=== PATIENT | male | born 1945 | race Caucasian/White ===

== ENCOUNTER 2018-02-11 17:03 | Emergency (ER) | payer MEDICARE ==
[~2018-02-11] VITALS: Ht 188 cm; Wt 93.0 kg
[2018-02-11 17:14] VITALS: BP 121/70; PULSE 82; RESP 18; TEMP 97.6; O2SAT 98
[2018-02-11 17:49] VITALS: BP 118/97; PULSE 137; RESP 16; O2SAT 98
[2018-02-11 18:00] VITALS: BP 151/88; PULSE 144; RESP 16; O2SAT 98
[2018-02-11] MEDS ORDERED: SODIUM CHLOR 0.9% 1000 ML INJ 1,000 ML IV ONE (18:00)
[2018-02-11] MEDS ORDERED: METOPROLOL TARTRATE 50 MG TAB PO ONE (18:00)
[2018-02-11] MEDS ORDERED: METOPROLOL TARTRATE 5 MG/5 ML VIAL IV PUSH ONE ×2 (18:00→18:15)
[2018-02-11] MEDS ORDERED: IBUP200C (18:04)
[2018-02-11] MEDS ORDERED: SIMV20TA PO (18:04)
[2018-02-11] MEDS ORDERED: OMEP20TA93 PO (18:04)
[2018-02-11] MEDS ORDERED: BENA20TA PO (18:04)
[2018-02-11] MEDS ORDERED: NITR1SUB3 SL (18:04)
[2018-02-11] MEDS ORDERED: ASPI-516 CHEW (18:04)
--- NOTE | 2018-02-11 18:04 | PD ---
HPI Chief Complaint: Cardiac Complaint Time Seen by Provider: 17:49 Travel History International Travel<30 days: No Contact w/Intl Traveler<30days: No Traveled to known affect area: No History of Present Illness HPI 72-year-old male with history of hypertension, hyperlipidemia presents emergency department for evaluation of chest fluttering and shortness of breath that started at 1115 this morning. Patient states that he called his manager land office, Dr. Spears, and he recommended he come to the emergency department immediately for evaluation. Patient says that the fluttering is located on the right side of his chest and states it feels "weird". He denies actual pain however. says he has never had a history of this. Says that he had a PET scan last week to evaluate for a blockage of his right artery in his heart that was found on CT and says that the PET scan was normal. Says he has a history of hypertension and hyperlipidemia. Denies tobacco or alcohol use. Denies any other chronic cardiac or pulmonary issues. Denies any other chronic medical issues or medication use. Takes BASA daily. PFSH Past Medical History Atrial Fibrillation: Yes Cardiovascular Problems: Yes (A-FIB) High Cholesterol: Yes GERD: Yes Hypertension: Yes Past Surgical History Surgical History: No Previous Surgery Social History Alcohol Use: No Tobacco Use: No (quit in college) Substance Use: No Allergies-Medications (Allergen,Severity, Reaction): Coded Allergies: No Known Allergies (Unverified , 02/11/18) Reported Meds & Prescriptions Reported Meds & Active Scripts Active Metoprolol Tartrate 25 Mg Tab 12.5 Mg PO BID 14 Days Reported Nitroglycerin SL (Nitroglycerin) 0.4 Mg Subl 0.4 Mg SL DIRECTED PRN ONE TABLET UNDER THE TONGUE NEEDED FOR CHEST PAIN, MAY REPEAT EVERY FIVE MINUTES FOR A TOTAL OF 3 DOSES OR CALL 911 IF NO RELIEF Ibuprofen 200 Mg Cap 200 Mg Q4H PRN Omeprazole 20 Mg Tab 20 Mg PO DAILY Aspirin 81 Mg Chew 81 Mg CHEW DAILY Benazepril (Benazepril HCl) 20 Mg Tab 20 Mg PO DAILY Simvastatin 20 Mg Tab 20 Mg PO DAILY Review of Systems Except as stated in HPI: all other systems reviewed are Neg Physical Exam Narrative GENERAL: Normal, well-nourished in no apparent distress SKIN: Focused skin assessment warm/dry. HEAD: Atraumatic. Normocephalic. EYES: Pupils equal and round. No scleral icterus. No injection or drainage. ENT: No nasal bleeding or discharge. Mucous membranes pink and moist. NECK: Trachea midline. No JVD. CARDIOVASCULAR: Regular rate and rhythm. No murmur appreciated. RESPIRATORY: No accessory muscle use. Clear to auscultation. Breath sounds equal bilaterally. GASTROINTESTINAL: Abdomen soft, non-tender, nondistended. MUSCULOSKELETAL: No obvious deformities. No clubbing. No cyanosis. No pedal edema. NEUROLOGICAL: Awake and alert. No obvious cranial nerve deficits. Motor grossly within normal limits. Normal speech. PSYCHIATRIC: Appropriate mood and affect; insight and judgment normal. Data Data Last Documented VS Vital Signs Date Time Temp Pulse Resp B/P (MAP) Pulse Ox O2 Delivery O2 Flow Rate FiO2 02/11/18 19:14 70 18 163/96 (118) 95 Room Air 02/11/18 17:14 97.6 Orders Orders Complete Blood Count With Diff (02/11/18 17:22) Basic Metabolic Panel (Bmp) (02/11/18 17:22) Ckmb (Isoenzyme) Profile (02/11/18 17:22) Troponin I (02/11/18 17:22) Sodium Chlor 0.9% 1000 Ml Inj (Ns 1000 M (02/11/18 18:00) Metoprolol Tartrate Inj (Lopressor Inj) (02/11/18 18:00) Metoprolol Tartrate (Lopressor) (02/11/18 18:00) Chest, Single Ap (02/11/18 ) Metoprolol Tartrate Inj (Lopressor Inj) (02/11/18 18:15) Prothrombin Time / Inr (Pt) (02/11/18 18:19) Act Partial Throm Time (Ptt) (02/11/18 18:19) Electrocardiogram (02/11/18 ) Admit Order (Ed Use Only) (02/11/18 19:41) Labs Laboratory Tests Test 02/11/18 17:33 02/11/18 19:05 White Blood Count 8.1 TH/MM3 Red Blood Count 5.59 MIL/MM3 Hemoglobin 18.1 GM/DL Hematocrit 51.7 % Mean Corpuscular Volume 92.5 FL Mean Corpuscular Hemoglobin 32.4 PG Mean Corpuscular Hemoglobin Concent 35.0 % Red Cell Distribution Width 13.0 % Platelet Count 156 TH/MM3 Mean Platelet Volume 8.0 FL Neutrophils (%) (Auto) 61.7 % Lymphocytes (%) (Auto) 21.0 % Monocytes (%) (Auto) 14.4 % Eosinophils (%) (Auto) 2.0 % Basophils (%) (Auto) 0.9 % Neutrophils # (Auto) 5.0 TH/MM3 Lymphocytes # (Auto) 1.7 TH/MM3 Monocytes # (Auto) 1.2 TH/MM3 Eosinophils # (Auto) 0.2 TH/MM3 Basophils # (Auto) 0.1 TH/MM3 CBC Comment DIFF FINAL Differential Comment Blood Urea Nitrogen 21 MG/DL Creatinine 1.20 MG/DL Random Glucose 94 MG/DL Calcium Level 8.9 MG/DL Sodium Level 144 MEQ/L Potassium Level 3.9 MEQ/L Chloride Level 107 MEQ/L Carbon Dioxide Level 29.1 MEQ/L Anion Gap 8 MEQ/L Estimat Glomerular Filtration Rate 60 ML/MIN Total Creatine Kinase 97 U/L Troponin I 0.04 NG/ML Prothrombin Time 11.3 SEC Prothromb Time International Ratio 1.1 RATIO Activated Partial Thromboplast Time 24.8 SEC MDM Medical Decision Making Medical Screen Exam Complete: Yes Emergency Medical Condition: Yes Differential Diagnosis A. fib with RVR, ACS, angina Narrative Course 72-year-old male with history of hypertension, hyperlipidemia presents emergency department for evaluation of chest fluttering and shortness of breath that started at 1115 this morning while performing yard work. Patient states that he called his manager land office, Dr. Spears, and he recommended he come to the emergency department immediately for evaluation. Patient says that the fluttering is located on the right side of his chest and states it feels "weird ". He denies actual pain however. says he has never had a history of this. Says that he had a PET scan last week to evaluate for a blockage of his right artery in his heart that was found on CT and says that the PET scan was normal. Says he has a history of hypertension and hyperlipidemia. Denies tobacco or alcohol use. Denies any other chronic cardiac or pulmonary issues. Denies any other chronic medical issues or medication use. Takes BASA daily. Patient says that he made an appointment with Dr. Spears Wednesday. he says that his symptoms started at 11 this morning but decided to come in this afternoon because he thought the symptoms would resolve on its own. Vital signs stable- HR 90-170 BPM, irregularly irregular. EKG shows atrial fibrillation with RVR at rate 166. Labs and imaging studies ordered. Metoprolol 2.5 mg administered IV without improvement. A repeat dose of 2.5 mg demonstrated a heart rate of 60-70, irregularly irregular. Metoprolol 50 mg p.o. administered. @1900 I spoke with patient and he says he feels much better. He would like to go home. Says that he would like to go home if he is unable to obtain the heart catheter while he is here in the ER. After further discussion, pt agrees to stay but is insistent on not being in an observation period because of insurance issues. I advised that this was at the recommendation of the hospitalist and manager land. I explained the importance of monitoring in the hospital and the risks of leaving. @191 repeat EKG shows sinus rhythm with PACs, rate 78. No STEMI changes. After speaking with Dr. Sousa, pt refused to stay because of the observation status, because of insurance issues. I spoke with my attending as well he states that because patient does have a follow-up, it is reasonable to discharge patient with metoprolol and continue his daily aspirin. However, I believe he would benefit from admission. He has a followup with Dr. Pierson Wednesday at 1030a. Says he will follow up as discussed. Pt will have metoprolol 12.5mg BID, continue BASA QD. He should return to the ED for worsening or persistent symptoms. Diagnosis Primary Impression: Atrial fibrillation with RVR Admitting Information Admitting Physician Requests: Admit Referrals: Recreation Therapy Teacher Additional Instructions: Follow-up with manager land as discussed. Start metoprolol 12.5 mg twice a day. Hold for heart rate 50 or less. Start this medication tomorrow morning. Continue aspirin daily. If your symptoms persist or worsen, return to the ED. Scripts Metoprolol Tartrate (Metoprolol Tartrate) 25 Mg Tab 12.5 MG PO BID for 14 Days, #14 TAB 0 Refills Prov: Erica Montoya 02/11/18 Disposition: 01 DISCHARGE HOME Condition: Stable Erica Montoya Feb 11, 2018 18:04
[2018-02-11 18:15] LABS: BASOPHIL # 0.1 TH/MM3 (0-0.2); BASOPHIL % 0.9 % (0.0-2.0); EOSINOPHIL # 0.2 TH/MM3 (0-0.4); HEMATOCRIT 51.7 % (39.0-51.0); HEMOGLOBIN 18.1 GM/DL (13.0-17.0); LYMPHOCYTE # 1.7 TH/MM3 (1.0-4.8); MEAN CELL VOLUME 92.5 FL (80.0-100.0); MEAN CORPUSCULAR HEMOGLOBIN 32.4 PG (27.0-34.0); MONO % 14.4 % (0.0-8.0); MONOCYTE # 1.2 TH/MM3 (0-0.9); NEUT % 61.7 % (16.0-70.0); PLATELET COUNT 156 TH/MM3 (150-450); RED BLOOD COUNT 5.59 MIL/MM3 (4.50-5.90); WHITE BLOOD COUNT 8.1 TH/MM3 (4.0-11.0)
[2018-02-11 18:26] LABS: BICARBONATE 29.1 MEQ/L (21.0-32.0); CALCIUM 8.9 MG/DL (8.5-10.1); CREATININE 1.2 MG/DL (0.60-1.30); TROPONIN I 0.04 NG/ML (0.02-0.05)
--- NOTE | 2018-02-11 18:33 | RADRPT ---
EXAM DATE/TIME: 02/11/2018 18:15 [facility] COMPARISON: No previous studies available for comparison. INDICATIONS : Shortness of breath MEDICAL HISTORY : Hypertension. SURGICAL HISTORY : None. ENCOUNTER: Initial ACUITY: 1 day PAIN SCORE: 10 LOCATION: Bilateral chest FINDINGS: A single view of the chest demonstrates the lungs to be symmetrically aerated without evidence of mas s, infiltrate or effusion. The cardiomediastinal contours are unremarkable. Osseous structures are intact. CONCLUSION: No evidence of acute cardiopulmonary disease. Caio James MD on February 11, 2018 at 18:30 Board Certified Radiologist. This report was verified electronically.
--- NOTE | 2018-02-11 18:57 | PD ---
Data Data Last Documented VS Vital Signs Date Time Temp Pulse Resp B/P (MAP) Pulse Ox O2 Delivery O2 Flow Rate FiO2 02/11/18 18:00 144 16 151/88 (109) 98 Room Air 02/11/18 17:14 97.6 Orders Orders Complete Blood Count With Diff (02/11/18 17:22) Basic Metabolic Panel (Bmp) (02/11/18 17:22) Ckmb (Isoenzyme) Profile (02/11/18 17:22) Troponin I (02/11/18 17:22) Sodium Chlor 0.9% 1000 Ml Inj (Ns 1000 M (02/11/18 18:00) Metoprolol Tartrate Inj (Lopressor Inj) (02/11/18 18:00) Metoprolol Tartrate (Lopressor) (02/11/18 18:00) Chest, Single Ap (02/11/18 ) Metoprolol Tartrate Inj (Lopressor Inj) (02/11/18 18:15) Prothrombin Time / Inr (Pt) (02/11/18 18:19) Act Partial Throm Time (Ptt) (02/11/18 18:19) Labs Laboratory Tests Test 02/11/18 17:33 White Blood Count 8.1 TH/MM3 Red Blood Count 5.59 MIL/MM3 Hemoglobin 18.1 GM/DL Hematocrit 51.7 % Mean Corpuscular Volume 92.5 FL Mean Corpuscular Hemoglobin 32.4 PG Mean Corpuscular Hemoglobin Concent 35.0 % Red Cell Distribution Width 13.0 % Platelet Count 156 TH/MM3 Mean Platelet Volume 8.0 FL Neutrophils (%) (Auto) 61.7 % Lymphocytes (%) (Auto) 21.0 % Monocytes (%) (Auto) 14.4 % Eosinophils (%) (Auto) 2.0 % Basophils (%) (Auto) 0.9 % Neutrophils # (Auto) 5.0 TH/MM3 Lymphocytes # (Auto) 1.7 TH/MM3 Monocytes # (Auto) 1.2 TH/MM3 Eosinophils # (Auto) 0.2 TH/MM3 Basophils # (Auto) 0.1 TH/MM3 CBC Comment DIFF FINAL Differential Comment Blood Urea Nitrogen 21 MG/DL Creatinine 1.20 MG/DL Random Glucose 94 MG/DL Calcium Level 8.9 MG/DL Sodium Level 144 MEQ/L Potassium Level 3.9 MEQ/L Chloride Level 107 MEQ/L Carbon Dioxide Level 29.1 MEQ/L Anion Gap 8 MEQ/L Estimat Glomerular Filtration Rate 60 ML/MIN Total Creatine Kinase 97 U/L Troponin I 0.04 NG/ML MDM Supervised Visit with MINDY: Yes Narrative Course I, Dr. Stovall, have reviewed the advance practice practitioner's documentation and am in agreement, met with the patient face to face, made the diagnosis, and the medical decision making was done by me. *My assessment and Findings: Patient presents with a new onset of A. fib with RVR. Pressure is decent at this point. Heart rate improved with IV Lopressor. Labs pending. Plan is for telemetry admission for new onset A. fib with RVR Diagnosis Primary Impression: Atrial fibrillation with RVR Admitting Information Admitting Physician Requests: Admit Condition: Stable Doug Stovall MD Feb 11, 2018 18:57
[2018-02-11 19:14] VITALS: BP 163/96; PULSE 70; RESP 18; O2SAT 95
[2018-02-11] MEDS ORDERED: SODIUM CHLOR 0.9% 1000 ML INJ 1,000 ML IV SCH (19:40)
[2018-02-11] MEDS ORDERED: MORPHINE SULFATE 2 MG/ML SYRINGE IV PUSH PRN (19:45)
[2018-02-11] MEDS ORDERED: ONDANSETRON HCL 4 MG/2 ML VIAL IVP PRN (19:45)
[2018-02-11] MEDS ORDERED: ACETAMINOPHEN 325 MG TAB PO PRN (19:45)
[2018-02-11] MEDS ORDERED: ACETAMINOPHEN/HYDROcodone 325 MG/5 MG TAB PO PRN (19:45)
[2018-02-11] MEDS ORDERED: MAGNESIUM HYDROXIDE SUSP 30 ML CUP PO PRN (19:45)
[2018-02-11] MEDS ORDERED: LACTULOSE SYRUP 20 GM/30 ML CUP PO PRN (19:45)
[2018-02-11] MEDS ORDERED: BISACODYL 10 MG SUPP RECTAL PRN (19:45)
[2018-02-11] MEDS ORDERED: SENNOSIDES 8.6 MG TAB PO PRN (19:45)
[2018-02-11] MEDS ORDERED: SODIUM CHLORIDE 0.9% FLUSH 10 ML FLUSH IV FLUSH PRN (19:45)
--- NOTE | 2018-02-11 19:45 | HHI.HP ---
[facility] Primary Care Physician Yadiel Allen MD Admission Diagnosis new onset AFib Diagnoses: Travel History International Travel<30 Days: No Contact w/Intl Traveler <30 Da: No Traveled to Known Affected Are: No Past Family Social History Allergies: Coded Allergies: No Known Allergies (Unverified , 02/11/18) Physical Exam Vital Signs Vital Signs Date Time Temp Pulse Resp B/P (MAP) Pulse Ox O2 Delivery O2 Flow Rate FiO2 02/11/18 19:14 70 18 163/96 (118) 95 Room Air 02/11/18 18:00 144 16 151/88 (109) 98 Room Air 02/11/18 17:49 137 16 118/97 (104) 98 Room Air 02/11/18 17:46 153 16 98 Room Air 02/11/18 17:14 97.6 82 18 121/70 (87) 98 Physical Exam GENERAL: This is a well-nourished, well-developed patient, in no apparent distress. SKIN: No rashes, ecchymoses or lesions. Cool and dry. HEAD: Atraumatic. Normocephalic. No temporal or scalp tenderness. EYES: Pupils equal round and reactive. Extraocular motions intact. No scleral icterus. No injection or drainage. ENT: Nose without bleeding, purulent drainage or septal hematoma. Throat without erythema, tonsillar hypertrophy or exudate. Uvula midline. Airway patent. NECK: Trachea midline. No JVD or lymphadenopathy. Supple, nontender, no meningeal signs. CARDIOVASCULAR: Regular rate and rhythm without murmurs, gallops, or rubs. RESPIRATORY: Clear to auscultation. Breath sounds equal bilaterally. No wheezes , rales, or rhonchi. GASTROINTESTINAL: Abdomen soft, non-tender, nondistended. No hepato-splenomegaly , or palpable masses. No guarding. MUSCULOSKELETAL: Extremities without clubbing, cyanosis, or edema. No joint tenderness, effusion, or edema noted. No calf tenderness. Negative Homans sign bilaterally. NEUROLOGICAL: Awake and alert. Cranial nerves II through XII intact. Motor and sensory grossly within normal limits. Five out of 5 muscle strength in all muscle groups. Normal speech. Laboratory Laboratory Tests Test 02/11/18 17:33 02/11/18 19:05 White Blood Count 8.1 Red Blood Count 5.59 Hemoglobin 18.1 Hematocrit 51.7 Mean Corpuscular Volume 92.5 Mean Corpuscular Hemoglobin 32.4 Mean Corpuscular Hemoglobin Concent 35.0 Red Cell Distribution Width 13.0 Platelet Count 156 Mean Platelet Volume 8.0 Neutrophils (%) (Auto) 61.7 Lymphocytes (%) (Auto) 21.0 Monocytes (%) (Auto) 14.4 Eosinophils (%) (Auto) 2.0 Basophils (%) (Auto) 0.9 Neutrophils # (Auto) 5.0 Lymphocytes # (Auto) 1.7 Monocytes # (Auto) 1.2 Eosinophils # (Auto) 0.2 Basophils # (Auto) 0.1 CBC Comment DIFF FINAL Differential Comment Blood Urea Nitrogen 21 Creatinine 1.20 Random Glucose 94 Calcium Level 8.9 Sodium Level 144 Potassium Level 3.9 Chloride Level 107 Carbon Dioxide Level 29.1 Anion Gap 8 Estimat Glomerular Filtration Rate 60 Total Creatine Kinase 97 Troponin I 0.04 Result Diagram: 02/11/18 1733 02/11/18 1733 Caprini VTE Risk Assessment Caprini Risk Assessment Model Point Value = 1 Point Value = 2 Point Value = 3 Point Value = 5 Age 41-60 Minor surgery BMI > 25 kg/m2 Swollen legs Varicose veins or History of unexplained or recurrent spontaneous Oral contraceptives or hormone replacement Sepsis (< 1 month) Serious lung disease, including pneumonia (< 1 month) Abnormal pulmonary function Acute myocardial infarction Congestive heart failure (< 1 month) History of inflammatory bowel disease Medical patient at bed rest Age 61-74 Arthroscopic surgery Major open surgery (> 45 min) Laparoscopic surgery (> 45 min) Malignancy Confined to bed (> 72 hours) Immobilizing plaster cast Central venous access Age >= 75 History of VTE Family history of VTE Factor V Leiden Prothrombin [id number] Lupus anticoagulant Anticardiolipin antibodies Elevated serum homocysteine Heparin-induced thrombocytopenia Other congenital or acquired thrombophilia Stroke (< 1 month) Elective arthroplasty Hip, pelvis, or leg fracture Acute spinal cord injury (< 1 month) Prophylaxis Regimen Total Risk Factor Score Risk Level Prophylaxis Regimen 0-1 Low Early ambulation 2 Moderate Order ONE of the following: *Sequential Compression Device (SCD) *Heparin 5000 units SQ BID 3-4 Higher Order ONE of the following medications: *Heparin 5000 units SQ TID *Enoxaparin/Lovenox 40 mg SQ daily (WT < 150 kg, CrCl > 30 mL/min) *Enoxaparin/Lovenox 30 mg SQ daily (WT < 150 kg, CrCl > 10-29 mL/min) *Enoxaparin/Lovenox 30 mg SQ BID (WT < 150 kg, CrCl > 30 mL/min) AND/OR *Sequential Compression Device (SCD) 5 or more Highest Order ONE of the following medications: *Heparin 5000 units SQ TID (Preferred with Epidurals) *Enoxaparin/Lovenox 40 mg SQ daily (WT < 150 kg, CrCl > 30 mL/min) *Enoxaparin/Lovenox 30 mg SQ daily (WT < 150 kg, CrCl > 10-29 mL/min) *Enoxaparin/Lovenox 30 mg SQ BID (WT < 150 kg, CrCl > 30 mL/min) AND *Sequential Compression Device (SCD) Nani Sousa MD Feb 11, 2018 19:45
[2018-02-11] MEDS ORDERED: METO25TA3 PO (19:59)
[2018-02-11 20:01] LABS: INTERNATIONAL NORMALIZED RATIO 1.1 RATIO; PROTHROMBIN TIME - PATIENT 11.3 SEC (9.8-11.6)
[2018-02-11] MEDS ORDERED: DOCUSATE SODIUM 50 MG/SENNA 8.6 MG TAB PO SCH (21:00)
[2018-02-11] MEDS ORDERED: SODIUM CHLORIDE 0.9% FLUSH 10 ML FLUSH IV FLUSH SCH (21:00)
--- NOTE | 2018-02-11 23:27 | EKG ---
Date Performed: 02/11/2018 Time Performed: 19:13:24 PTAGE: 72 years EKG: Sinus rhythm WITH OCCASIONAL SUPRAVENTRICULAR PREMATURE COMPLEXES INCOMPLETE RIGHT BUNDLE BRANCH BLOCK BORDERLINE ECG PREVIOUS TRACING : 02/11/2018 17.27 Compared to previous tracing, now in sinus rhythm, ST/T wa ve changes no longer noted DOCTOR: Alo Hansen Interpretating Date/Time 02/11/2018 23:25:41
--- NOTE | 2018-02-11 23:28 | EKG ---
Date Performed: 02/11/2018 Time Performed: 17:27:37 PTAGE: 72 years EKG: ATRIAL FLUTTER/TACHYCARDIA WITH RAPID VENTRICULAR RESPONSE INCOMPLETE RIGHT BUNDLE BRANCH B LOCK ST DEVIATION AND MODERATE T-WAVE ABNORMALITY, CONSIDER INFERIOR ISCHEMIA ABNORMAL ECG NO PREVIOUS TRACING DOCTOR: Alo Hansen Interpretating Date/Time 02/11/2018 23:27:01
[2018-02-12] MEDS ORDERED: METOPROLOL TARTRATE 25 MG TAB PO SCH (09:00)
[2018-02-12] MEDS ORDERED: NON-FORMULARY DRUG (Omeprazole 20 MG) PO SCH (09:00)
[2018-02-12] MEDS ORDERED: NON-FORMULARY DRUG (Simvastatin 20 MG) PO SCH (09:00)
[2018-02-12] MEDS ORDERED: ASPIRIN 81 MG CHEW TAB CHEW SCH (09:00)
== END 2018-02-11 20:13 | disposition home or self-care (01) ==
LOC: NEPC 17:03 → NEDA 19:43 → UNDOADMOB 19:43 → NEPC 20:13
DX: I48.91 Unspecified atrial fibrillation (principal); E78.5 Hyperlipidemia, unspecified; I10 Essential (primary) hypertension; Z87.891 Personal history of nicotine dependence
CPT/HCPCS: 71045; 80048; 82550; 84484; 85025; 85610; 85730; 93005; 96361; 96374; 99285; J7030

== ENCOUNTER 2018-02-15 10:27 | Day surgery (SDC) | payer MEDICARE ==
[~2018-02-15] VITALS: Ht 188 cm; Wt 93.4 kg
[~2018-02-15 10:27] MED LIST: ASPI-516 CHEW; BENA20TA PO; IBUP200C; METO25TA3 PO; NITR1SUB3 SL; OMEP20TA93 PO; SIMV20TA PO
[2018-02-15] MEDS ORDERED: IOHEXOL 350 MG/ML 100 ML BTL (for Cath Lab) OTHER ONE (10:28)
[2018-02-15 10:57] VITALS: BP 192/112; PULSE 53; RESP 18; TEMP 97.7; O2SAT 98
[2018-02-15] MEDS ORDERED: NS 1000P @30 MLS/HR (KVO) IV SCH (11:00)
[2018-02-15] MEDS ORDERED: ASPI-183 PO (11:03)
[2018-02-15] MEDS ORDERED: METO50TA PO (11:03)
[2018-02-15 11:16] LABS: AUTOMATED NEUTROPHIL # 4.3 TH/MM3 (1.8-7.7); BASOPHIL # 0.1 TH/MM3 (0-0.2); BASOPHIL % 1.1 % (0.0-2.0); EOSINOPHIL # 0.3 TH/MM3 (0-0.4); EOSINOPHIL % 4.4 % (0.0-4.0); HEMATOCRIT 53.2 % (39.0-51.0); HEMOGLOBIN 18.3 GM/DL (13.0-17.0); LYMPH % 19.5 % (9.0-44.0); LYMPHOCYTE # 1.3 TH/MM3 (1.0-4.8); MEAN CELL VOLUME 92.8 FL (80.0-100.0); MEAN CORPUSCULAR HEMOGLOBIN 31.9 PG (27.0-34.0); MEAN CORPUSCULAR HGB CONC 34.4 % (32.0-36.0); MEAN PLATELET VOLUME 8.1 FL (7.0-11.0); MONOCYTE # 0.8 TH/MM3 (0-0.9); PLATELET COUNT 169 TH/MM3 (150-450); RED BLOOD COUNT 5.73 MIL/MM3 (4.50-5.90); RED CELL DISTRIBUTION WIDTH 13.1 % (11.6-17.2); WHITE BLOOD COUNT 6.8 TH/MM3 (4.0-11.0)
[2018-02-15 11:23] LABS: INTERNATIONAL NORMALIZED RATIO 1.1 RATIO
[2018-02-15 11:24] LABS: PROTHROMBIN TIME - PATIENT 10.7 SEC (9.8-11.6)
[2018-02-15 11:33] LABS: CALCIUM 8.7 MG/DL (8.5-10.1); CREATININE 1.05 MG/DL (0.60-1.30)
[2018-02-15] MEDS ORDERED: MIDAZOLAM HCL 2 MG/2 ML VIAL ONE (13:06)
[2018-02-15] MEDS ORDERED: HEPARIN SODIUM - IV 10,000 UNITS/10 ML VIAL ONE (13:06)
[2018-02-15] MEDS ORDERED: ENALAPRILAT 1.25 MG/ML VIAL ONE ×2 (13:53→14:08)
[2018-02-15] MEDS ORDERED: METOPROLOL TARTRATE 5 MG/5 ML VIAL ONE (14:20)
--- NOTE | 2018-02-15 14:38 | CATHPROC ---
[facility] HIS Report Study Information Study Number Admission Scheduled Start Study Start [id number] Feb 15 2018 10:27AM 02/15/2018 Feb 15 2018 1:07PM [facility] Cardiac Catheterization Admit Source Facility Department Other [facility] Physician and Clinical Staff Initial Naty Gomez Money Room Supervisor Ethel Camacho,GABE Money Room Supervisor Ty Faith RN Other cathlab, cathlab Recorder Иван Escamilla RCIS(BS) Scrub Kiki Gonzalez RT(R) Procedures Performed Procedure Location (Site) Vessel Name Angiogram LV LV Ventricle Coronary Angiograms LCA Left Coronary Coronary Angiograms RCA Right Coronary L Heart Cath Wire insertion Fem Art (right) Femoral Art Equipment Time Comic Artist Description Size Mfg Part Number Used/Scraped TRANSDUCER, SHELBY [id number] 13:19 Fredio * Used W/STOCKCOCK *[id number] INTRODUCER SET, 13:19 [employer] FR 5 [id number] *[id number] Used MICROPUNCTURE STIFF [phone] *[id number] 538-420 *[id number] 538-422 *[id number] 538-453S *[id number] WIRE, HYDROSTEER 150CM [id number] 13:38 DAIG/ST. ANH MEDICAL 150CM Used ANGLED GLIDE *[id number] 13:19 MEDLINE IND[employer]ES PACK, CCL CUSTOM * Used *[id number] 13:19 [employer] PACER PEN, SKIN DUAL W/ RULER * Used *[id number] 13:19 [employer]2One MEDICAL WIRE, 3MMJ .035 180CM 180CM Used *[id number] PROBE COVER, STERILE [id number] 13:19 [employer] * Used ULTRASOUND W/ GEL *[id number] 13:19 NAMIC MANIFOLD, 4 PORT * Used *[id number] 13:19 NYCOMED OMNIPAQUE, 350 MG, 150ML 150ML [id number] Used 14:01 NYCOMED OMNIPAQUE, 350 MG, 50ML 50ML [id number] Used [id number] 13:19 EARLY MEDICAL BLANKET,WARM AIR CCL * Used *[id number] 13:19 TERUMO MEDICAL SHEATH, FR4 TERUMO (10CM) FR 4 Used *[id number] History: Current Medications Medication Dosage/Unit Route Frequency Last Date/Time Taken Beta Haim Statins (any) ASA History: Allergies Allergy Reaction No Known Allergies History: Risk Factors Family History of Hypertension Dyslipidemia Previous [place] Previous Heart Failure Premature CAD Yes No No No No Prior Valve Prior PCI Prior CABG Surgery No No No Cerebrovascular Peripheral Artery Chronic Lung On Dialysis Diabetes Disease Disease Disease No No No No No History: Symptoms/Diagnosis Selection Items Chest pain History: Stress Tests Stress or Imaging Studies Performed Yes Standard Exercise Stress Test No Stress Echo No Stress Test SPECT Stress Test SPECT Result Stress Test SPECT Ischemia Risk/Extent Yes Positive Unavailable Stress Test CMR No Cardiac CTA Coronary Calcium Score No No History: Other Disease Selection Items HTN History: Other Current Smoker No Labs Hgb (g/dl) Hct (%) WBC (l/cumm) Platelets (thousands) 11.60-17.00 35.00-51.00 4.00-11.00 150.00-450.00 18.3 53.2 6.8 169 Glucose (mg/dl) BUN (mg/dl) Creatinine (mg/dl) BUN:Creatinine (1:x) 74.00-106.00 7.00-18.00 0.50-1.30 10.00-20.00 91 14 1.0 14 Na (meq/l) K (meq/l) 136.00-145.00 3.50-5.10 141 4.5 INR (PTT:PT) 0.90-1.10 1.1 CPK-MB (ng/ML) 0.50-3.60 Not Drawn Medication Medication Total Dose (Bolus/Oral) Medication Total Dosage/Unit 1% XYLOCAINE 20 mL FENTANYL 50 mcg METOPROLOL 5 mg VASOTEC 2.5 mg VERSED 2 mg Medications (Bolus/Oral) Medication Time Given Dosage/Unit Administered By Reason VERSED 02/15/2018 1:31:20 PM 2 mg Ty Faith 2 mg VERSED given in lab by Ty Faith RN in Left Antecubital via Peripheral IV. Ordered by Naty Wu. FENTANYL 02/15/2018 1:31:37 PM 50 mcg Ty Faith 50 mcg FENTANYL given in lab by Ty Faith RN in Left Antecubital via Peripheral IV. Ordered by Naty Almeida. 1% XYLOCAINE 02/15/2018 1:33:58 PM 20 mL Naty Spears 20 mL 1% XYLOCAINE given in lab by Naty Spears in Right Groin via Subcutaneous. VASOTEC 02/15/2018 1:55:20 PM 1.25 mg Ty Faith 1.25 mg VASOTEC given in lab by Ty Faith RN in Left Hand via Peripheral IV. Ordered by Naty Spears. VASOTEC 02/15/2018 2:13:35 PM 1.25 mg Ty Faith 1.25 mg VASOTEC given in lab by Ty Faith RN in Left Hand via Peripheral IV. Ordered by Naty Spears. METOPROLOL 02/15/2018 2:22:32 PM 5 mg Ty Faith 5 mg METOPROLOL given in lab by Ty Faith RN in Left Wrist via Peripheral IV. Ordered by Naty Spears. Initial Case Assessment Cardiovascular HR Rhythm NIBP Chest Pain 56 nsr 184/107 0 Edema Present Skin color Skin None Normal Warm Dry Circulatory - Right Pulses Dorsalis Pedis Femoral 2 2 Scale (0,1,2,3,4,d) Circulatory - Left Pulses Dorsalis Pedis Femoral 2 2 Scale (0,1,2,3,4,d) Neurological State Oriented to time-place- Alert Moves all extremities person Respiration - General Respiration Rate SpO2 (%) (B/min) 15 97 Final Case Assessment Cardiovascular HR Rhythm NIBP Chest Pain 56 nsr 184/107 0 Edema Present Skin color Skin None Normal Warm Dry Circulatory - Right Pulses Dorsalis Pedis Femoral 2 2 Scale (0,1,2,3,4,d) Circulatory - Left Pulses Dorsalis Pedis Femoral 2 2 Scale (0,1,2,3,4,d) Neurological State Oriented to time-place- Alert Moves all extremities person Respiration - General Respiration Rate SpO2 (%) (B/min) 15 97 Chronological Log Time Study Chronological Log 12:59:00 Patient arrived via Bed. 12:59:02 Patient Name, D.O.B, / Armband Verified By R.N. 12:59:03 Consent signed by the physician and the patient and verified by the [facility] staff. 12:59:04 Pre-op and post- op instructions given; patient acknowledges understanding of instructions. 12:59:05 Verbal Stimulation=2 Physical Stimulation=2 Airway=2 Respiration=2 TOTAL=8. (0=absent, 1=li mited, 2=present) 12:59:06 Patient has been NPO for More than 6Hrs. 12:59:30 History and physical on the chart or being dictated. 13:00:00 Skin Breakdown- none per pt 13:05:00 Patient Warmer Placed on the Table. 13:07:25 A # 20 IV was noted in the Hand (left). Grade = 0 0.9%NaCl @ KVO Vitals capture started with the following parameters, Patient=Adult, Interval=5 min, Initial Pr dkgfoh=502 mmHg, 13:13:01 Deflation Rate=5 mmHg, Cuff placed on Unknown 13:14:27 HR=60 bpm, PRWW=224/117 mmhg, SpO2=97.0 %, Resp=10 B/min, Pain=0, Bell=10, Guzmán=2 13:16:23 Right groin prepped with 2% chlorhexidine, and draped after a 3 min. waiting time. 13:17:14 MD paged 13:19:26 HR=69 bpm, BUCR=030/107 mmhg, SpO2=97.0 %, Resp=16 B/min, Pain=0, Bell=10, Guzmán=2 13:20:51 Pressure channel 1 zeroed. 13:20:54 Reference ECG taken Assessment: Initial Case, HR=56 BPM, Rhythm=nsr, ITQF=451/107 mmhg, Chest Pain=0, Edema=None, Color=Normal, Skin = Warm, Dry Right Pulses: Kamlesh Ped=2, Femoral=2 13:21:00 Left Pulses: Kamlesh Ped=2, Femoral=2 Neurological: State=Alert, Ox3, VAN Respiration: Resp=15 B/min, SpO2=97 % 13:23:48 HR=57 bpm, LSWN=889/93 mmhg, SpO2=97.0 %, Resp=18 B/min, Pain=0, Bell=10, Guzmán=2 13:28:59 MD arrived. 13:29:02 Contrast Scanned 13:29:03 Immediate Presedation assesment performed by physician. 13:29:20 HR=56 bpm, MMMT=672/96 mmhg, SpO2=97.0 %, Resp=16 B/min, Pain=0, Bell=10, Guzmán=2 13:31:20 2 mg VERSED given in lab by Ty Faith RN in Left Antecubital via Peripheral IV. Ordere d by Naty Spears. 50 mcg FENTANYL given in lab by Ty Faith RN in Left Antecubital via Peripheral IV. Ordere d by Regan, 13:31:37 Naty. Time Out. Correct patient, correct procedure, correct physician, power injector not loaded with contrast with surgical 13:32:43 team present. Time Out Concurred by MD and individual staff in procedure. 13:32:54 Case Start 13:32:55 Verbal Stimulation=2 Physical Stimulation=2 Airway=2 Respiration=2 TOTAL=8. (0=absent, 1=li mited, 2=present) 13:33:48 HR=60 bpm, CHJF=150/99 mmhg, SpO2=95.0 %, Resp=16 B/min, Pain=0, Bell=10, Guzmán=2 13:33:58 20 mL 1% XYLOCAINE given in lab by Naty Spears in Right Groin via Subcutaneous. 13:35:47 Access site was Right Femoral Artery. A INTRODUCER SET, MICROPUNCTURE STIFF FR 5 was advanced into the Fem Art (right) using the Perc utaneous 13:35:50 technique. 13:38:12 A WIRE, HYDROSTEER 150CM ANGLED GLIDE 150CM was inserted via Fem Art (right). A SHEATH, FR4 TERUMO (10CM) FR 4 was exchanged in the Fem Art (right). This was necessary in or harper to 13:38:15 accomodate a larger catheter. 13:38:47 HR=57 bpm, FNLB=182/100 mmhg, SpO2=95.0 %, Resp=17 B/min, Pain=0, Bell=10, Guzmán=2 A JL 4.0 INFINITI CATHETER FR 4 was advanced over a wire. OMNIPAQUE, 350 MG, 150ML 150ML was us ed for 13:39:10 injections. Recorded Pressure: Ao, HR=55, Condition=Condition 1 13:42:11 (Aorta) Ao 169/80/117 13:43:04 The LCA was injected and visualized at various angles. OMNIPAQUE, 350 MG, 150ML 150ML used . 13:43:40 HR=55 bpm, RWIA=507/91 mmhg, SpO2=92.0 %, Resp=17 B/min, Pain=0, Bell=10, Guzmán=2 After removing the current catheter a JL 5.0 INFINITI CATHETER FR 4 was advanced over a WIRE, 3 MMJ .035 180CM 13:47:37 180CM. 13:48:43 HR=60 bpm, GGKJ=166/92 mmhg, SpO2=93.0 %, Resp=15 B/min, Pain=0, Bell=10, Guzmán=2 13:50:15 The LCA was injected and visualized at various angles. OMNIPAQUE, 350 MG, 150ML 150ML used . After removing the current catheter a 3DRC INFINITI CATHETER FR 4 was advanced over a WIRE, 3MM J .035 180CM 13:50:20 180CM. 13:53:10 The RCA was injected and visualized at various angles. OMNIPAQUE, 350 MG, 150ML 150ML used . 13:53:44 HR=59 bpm, EQMB=795/84 mmhg, SpO2=93.0 %, Resp=17 B/min, Pain=0, Bell=10, Guzmán=2 13:55:20 1.25 mg VASOTEC given in lab by Ty Faith, RN in Left Hand via Peripheral IV. Ordered Naty Padilla. 13:58:47 HR=57 bpm, HATX=471/93 mmhg, SpO2=94.0 %, Resp=19 B/min, Pain=0, Bell=10, Guzmán=2 After removing the current catheter a PIGTAIL ANG. INFINITI CATHETER FR 4 was advanced over a W BRANDI, 3MMJ .035 13:59:15 180CM 180CM. Recorded Pressure: LV, HR=61, Condition=Condition 1 14:01:02 (Left Ventricle) LV 166/9/16 14:01:12 The LV was injected at 8 cc/sec for a total of 32. OMNIPAQUE, 350 MG, 50ML 50ML used. Recorded Pressure: LV, Ao, HR=70, Condition=Condition 1 14:02:48 (Left Ventricle) LV 170/12/17, (Aorta) Ao 178/76/125 14:03:46 HR=62 bpm, VLPF=738/94 mmhg, SpO2=93.0 %, Resp=18 B/min, Pain=0, Bell=10, Guzmán=2 14:06:52 Catheter was removed 14:08:05 Case End Assessment: Final Case, HR=56 BPM, Rhythm=nsr, BOJT=705/107 mmhg, Chest Pain=0, Edema=None, Col or=Normal, Skin = Warm, Dry Right Pulses: Kamlesh Ped=2, Femoral=2 14:08:14 Left Pulses: Kamlesh Ped=2, Femoral=2 Neurological: State=Alert, Ox3, VAN Respiration: Resp=15 B/min, SpO2=97 % 14:08:21 Catheter(s) removed without difficulty 14:08:45 HR=63 bpm, TMTV=592/91 mmhg, SpO2=98.0 %, Resp=16 B/min, Pain=0, Bell=10, Guzmán=2 14:08:54 No case complications noted. 14:08:55 Cine recording checked. 14:08:56 Bedside Report will be given. 14:08:58 Verbal Stimulation=2 Physical Stimulation=2 Airway=2 Respiration=2 TOTAL=8. (0=absent, 1=li mited, 2=present) 14:09:05 A Left Heart Cath was performed. 14:12:07 Sheath removed; pressure applied to access site. 14:13:35 1.25 mg VASOTEC given in lab by Ty Faith RN in Left Hand via Peripheral IV. Ordered b Naty Gray. 14:13:48 HR=56 bpm, CSZV=409/94 mmhg, SpO2=96.0 %, Resp=15 B/min, Pain=0, Bell=10, Guzmán=2 14:13:56 Sheath removed; pressure applied to access site. 14:18:47 HR=54 bpm, IBDQ=491/95 mmhg, SpO2=97.0 %, Resp=20 B/min, Pain=0, Bell=10, Guzmán=2 14:22:32 5 mg METOPROLOL given in lab by Ty Faith RN in Left Wrist via Peripheral IV. Ordered by Naty Spears. 14:23:49 HR=60 bpm, NSVS=818/100 mmhg, SpO2=92.0 %, Resp=17 B/min, Pain=0, Bell=10, Guzmán=2 14:28:52 HR=56 bpm, ZYTI=530/98 mmhg, SpO2=95.0 %, Resp=11 B/min, Pain=0, Bell=10, Guzmán=2 14:31:03 Sterile dressing applied to site 14:34:50 XLQU=684/96 mmhg, SpO2=96.0 %, Pain=0, Bell=10, Guzmán=2 14:34:55 Vitals capture stopped. 14:38:06 [facility] - Contrast Media Used In Study Contrast Total Opened (mL) Total Used (mL) Total Wasted (mL) Omnipaque 90 90 0 End Study - Maximum Contrast Load Max Contrast Load (mL) 467.0 End Study - Radiation Exposure Fluoro Time (minutes) 6.1 End Study - Sheaths Sheaths Pulled By Sheath Hold Time (min) Kkii Gonzalez 17 End Study - Patient Disposition Complications Transferred To Interventional Outcome No [facility] No attempt made
[2018-02-15] MEDS ORDERED: SODIUM CHLOR 0.9% 1000 ML INJ 1,000 ML IV SCH (14:46)
[2018-02-15] MEDS ORDERED: MISC INFORMATION XX ONE (15:00)
[2018-02-15] MEDS ORDERED: cloNIDine HCL 0.1 MG TAB PO STA (15:06)
[2018-02-15] MEDS ORDERED: amLODIPine BESYLATE 5 MG TAB PO STA (15:07)
--- NOTE | 2018-02-15 15:13 | MA ---
cc: Naty Spears MD, Mark MD DATE: 02/15/2018 INDICATION FOR CATHETERIZATION: 1. Abnormal CT angiogram. 2. Chest pains. PROCEDURE: 1. Left heart catheterization. 2. Coronaries. 3. Sedation. CONSENT: Full informed consent was obtained. Risks of , bleeding, myocardial infarction, perforation, aspiration, hematoma, foreseen and unforeseen complications were reviewed. The patient fully appeared to understand the risks. PROCEDURE SUMMARY: Patient was draped, prepped in usual manner. Right femoral artery was entered using a micropuncture technique via the 4-Cameroonian sheath, left and right coronary catheters used to intubate the left and right coronaries, pigtail catheter left ventricle, multiple angiographic views carried out. At the end of the catheterization procedure, all catheters and sheaths were removed and manual pressure was applied until good hemostasis was achieved, and the patient was returned to his room in stable condition. FINDINGS: HEMODYNAMICS: The aortic pressure was 178/76 with a mean of 125. The left ventricular pressure was 170 with a left ventricular end-diastolic pressure of 17. There was no evident significant gradient on pullback across the LV outflow tract and aortic valve. LEFT VENTRICULOGRAM: The overall left ventricular ejection fraction was 60%. There was no evidence of significant mitral regurgitation or mural thrombus. CORONARIES: The left main was large and free of significant disease. Left anterior descending artery was a large vessel. There was a medium-sized first diagonal branch, small second diagonal branch and a small to medium third diagonal branch. There was mild diffuse disease throughout the LAD. In the distal LAD, just after the third diagonal branch, was a 90% stenosis involving a small terminal LAD. There was a large intermediate ramus. The circumflex vessel was medium with a small first obtuse marginal branch and small second obtuse marginal branch. The right coronary artery was a large vessel with a large posterior descending artery, large posterolateral branch. There was 40-50% stenosis in the proximal right. Multiple views were taken of the right coronary. CONCLUSION: 1. 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 2. High-grade distal left anterior descending, which is a small area of muscle involved, negative nuclear and very small vessel, which is about 1.3 mm in diameter. PLAN: Medical management. We will keep an eye on his right coronary with nuclear stress test in the future. Will also consider careful management of cholesterol. MD JUAN Pritchard/TAQUERIA , 02:24 PM , 02:53 PM
--- NOTE | 2018-02-16 08:55 | EKG ---
Date Performed: 02/15/2018 Time Performed: 11:07:22 PTAGE: 72 years EKG: Sinus rhythm with PAC(s). Inferior T wave changes are nonspecific Borderline ECG PREVIOUS TRACING : 02/11/2018 19.13 Since the previous tracing, no significant change noted DOCTOR: Angel Conklin Interpretating Date/Time 02/16/2018 08:50:14
== END 2018-02-15 18:16 | disposition home or self-care (01) ==
LOC: HDOC 10:27 → HDIC 10:27 → HDOC 18:16
PROVIDERS: ATTEND Internal Medicine Cardiovascular Disease
DX: I25.10 Atherosclerotic heart disease of native coronary artery without angina pectoris (principal); I48.92 Unspecified atrial flutter; R00.2 Palpitations; I10 Essential (primary) hypertension; R61 Generalized hyperhidrosis; E78.5 Hyperlipidemia, unspecified; Z01.818 Encounter for other preprocedural examination; Z01.810 Encounter for preprocedural cardiovascular examination
CPT/HCPCS: 80048; 85025; 85610; 85730; 93005; 93458; 99152; 99153; C1769; C1893; J1644; J2250; J3010; Q9967